=== PATIENT | male | born 1940 | race Caucasian/White ===

== ENCOUNTER → 2023-10-17 | Outpatient (CLI) | payer MEDICARE, BC, SELFPAY | END | disposition home or self-care (01) | PROVIDERS: PCP Family Medicine; Referring Provider Internal Medicine Critical Care Medicine; Visit Provider Internal Medicine Critical Care Medicine | DX: R06.02 Shortness of breath (principal) | CPT/HCPCS: 94060; 94726; 94729 ==

== ENCOUNTER → 2023-10-24 | Outpatient (CLI) | payer MEDICARE, BC, SELFPAY ==
[2023-10-24 11:15] VITALS: PULSE 83; PULSE 84; PULSE 90; PULSE 91; PULSE 92; PULSE 93; PULSE 99; O2SAT 95; O2SAT 96; O2SAT 97
--- NOTE | 2023-10-27 13:32 | WT_ITS ---
PSN 6 Minute Walk Test 6 Minute Walk Test 6 Minute Walk Test: 6 Minute Walk Test PSN:6-Minute Walk Test Start: 10/24/23 11:26 Freq: Status: Active Protocol: [id number] Document 10/24/23 11:15 [facility] (Rec: 10/24/23 11:[address] [facility] Desktop) 6 Minute Walk Test Date Performed 10/24/23 Time Performed 11:15 Height 6 ft 1 in Weight: 222 lb Weight in Pounds 222.[address]: Dr Esteban Assistive device used: None Pre-test Oxygen Delivery Method Room Air Pulse Ox 96 Pulse Rate (60-100) 83 Dyspnea Scott Scale (0-10) 0 Exertion Scott Scale (6-20) 6 1st minute Oxygen Delivery Method Room Air Pulse Ox 95 Pulse Rate (60-100) 93 2nd minute Oxygen Delivery Method Room Air Pulse Ox 97 Pulse Rate (60-100) 91 3rd minute Oxygen Delivery Method Room Air Pulse Ox 97 Pulse Rate (60-100) 92 4th minute Oxygen Delivery Method Room Air Pulse Ox 96 Pulse Rate (60-100) 90 5th minute Oxygen Delivery Method Room Air Pulse Ox 96 Pulse Rate (60-100) 92 6th minute Oxygen Delivery Method Room Air Pulse Ox 96 Pulse Rate (60-100) 99 Dyspnea Scott Scale (0-10) 0.5 Exertion Scott Scale (6-20) 11 Post-test Oxygen Delivery Method Room Air Pulse Ox 97 Pulse Rate (60-100) 84 Full Laps Walked 15 Partial Lap, Number of Tiles Walked 14 Total Distance Walked (ft) 899 Interpretation Interpretation: The patient ambulated 899 feet over the course of 6 minutes beginning on room air without assistive devices. Pretesting oxygen saturation was noted to be 96% on room air. With ambulation, the garrison oxygen saturation was 95%. There was no significant exertional oxygen desaturation. Recommendations Recommendations: There is no indication for the use of supplemental oxygen at this time.
== END | disposition home or self-care (01) ==
PROVIDERS: PCP Family Medicine; Referring Provider Internal Medicine Critical Care Medicine; Visit Provider Internal Medicine Critical Care Medicine
DX: R06.02 Shortness of breath (principal)
CPT/HCPCS: 94618

== ENCOUNTER → 2023-12-27 | Outpatient (CLI) | payer MEDICARE, BC, SELFPAY ==
--- NOTE | 2023-12-27 13:02 | CT_ITS ---
STUDY: LOW DOSE CT LUNG CANCER SCREENING REASON FOR EXAM: Male, 83 years old. HX SMOKING RADIATION DOSAGE (If Supplied By Facility): CTDIvol = ( 3.18 ) mGy, DLP = ( 113.58 ) mGycm TECHNIQUE: No contrast was administered. Low dose technique was utilized (average mAS-38 and kVp 120). 1.25 mm axial source images with a slice interval of 1.25-mm were reconstructed in lung windows. 2.5 mm axial source images with a slice interval of 2.5-mm were reconstructed in lung windows. 5.0 mm axial source images with a slice interval of 5.0-mm were reconstructed in soft tissue windows. COMPARISON: None. Emphysema: Mild emphysema. No noncalcified nodule or mass. Endobronchial lesion: None Aorta: Calcified plaque in the aortic arch but no aortic aneurysm. CORONARY ARTERIES: Coronary artery calcification is seen. Heart: No cardiomegaly. Pulmonary artery: Normal Mediastinal nodes: Normal Other chest and abdominal findings: None CT/Low Dose CT Lung Screening IMPRESSION: Lung-RADS category 1 - Continue annual screening with LDCT in 12 months. IMPORTANT NOTES FOR USE: ACR Lung-RADS Version 1.1 Assessment Categories Release Date: 2018 Category: Coded 0-4 bases on nodule(s) with highest degree of suspicion. Negative screen is defined as categories 1 and 2; a positive screen is defined as categories 3 and 4. Category 3 and 4A nodules that are unchanged on interval CT should be coded as category 2, and individuals returned to screening in 12 months. Category 4X: Category 3 or 4 nodules with additional imaging findings that increase the suspicion of lung cancer, such as spiculation, GGN that doubles in size in 1 year, enlarged lymph notes, etc. Category Modifiers: S (significant finding unrelated to lung cancer) Electronically Signed: Niels Sandoval MD at 17:01 EDT ,
== END | disposition home or self-care (01) ==
PROVIDERS: PCP Family Medicine; Referring Provider Family Medicine; Visit Provider Family Medicine
DX: Z87.891 Personal history of nicotine dependence (principal)
CPT/HCPCS: 71271

== ENCOUNTER → 2024-04-09 | Outpatient (CLI) | payer MEDICARE, BC, SELFPAY ==
[2024-04-09] MEDS: Lidocaine 2% (5ml sdv) 5 ML VIAL.MPF INFILT (12:30)
[2024-04-09] MEDS: Bupivacaine 0.25% 30 ML Vial 3.5 ML INFILT ×2 (12:40→12:55)
[2024-04-09] MEDS: MethylPREDNISolone Acetate 40 MG/ML Vial 60 MG INTRAARTIC ×2 (12:40→12:55)
[2024-04-09] MEDS: Lidocaine 1% (5 ml sdv) 5 ML Vial 3.5 ML INFILT ×2 (12:40→12:55)
--- NOTE | 2024-04-09 12:41 | PCM.OP.PRO ---
Procedure Report Date of Procedure: 04/09/24 Assessment & Plan Assessment/Plan (1) Anterior subluxation of right humerus: QUALIFIERS: Encounter type: sequela Qualified Code(s): S43.011S - Anterior subluxation of right humerus, sequela PLAN: PROCEDURE: Fluoroscopic Guided right shoulder injection ORDERING PROVIDER: Dr. Vincent Kothari INDICATION: Male, 83 years old. Anterior subluxation of right humerus. PROVIDER: JASON Alcantar FLUOROSCOPY TIME (if supplied): 0 minutes/ 33 seconds. 1.9 mGy CONSENT: The risks, benefits, and alternatives to the procedure were explained to the patient. The specific risks of bleeding, infection, and neurovascular injury were detailed and accepted. Witnessed informed consent was obtained. TECHNIQUE: The right glenohumeral space access site was prepped with chlorhexidine and draped in sterile fashion. 2% Lidocaine was administered subcutaneously for local anesthesia. A 22-gauge spinal needle was positioned under radiographic fluoroscopic localization. Approximately 2 cc of Isovue 300 instilled for localization purposes. Medication was then injected. MEDICATIONS: 60 mg of methylprednisolone and 3.5 ml of 1% lidocaine and 3.5 mL of 0.25% bupivacaine. The spinal needle was removed, and a dressing was applied. The patient tolerated the procedure well without any immediate complications. IMPRESSION: Successful fluoroscopic guided right shoulder injection. Procedures Radiology Radiology Xray Procedures: [id number] Inj Asp major Joint - Hip, Knee (right) Multi Select Codes Radiology Rad Xray Procedures: [id number] Fluoroscopic guidance for needle placement
--- NOTE | 2024-04-09 13:26 | PCM.OP.PRO ---
Procedure Report Date of Procedure: 04/09/24 Assessment & Plan Assessment/Plan (1) Strain of left rotator cuff capsule: QUALIFIERS: Encounter type: sequela Qualified Code(s): S46.012S - Strain of muscle(s) and tendon(s) of the rotator cuff of left shoulder, sequela PLAN: PROCEDURE: Fluoroscopic guided injection of left shoulder ORDERING PROVIDER: Dr. Vincent Kothari INDICATION: Male, 83 years old. Strain of left rotator cuff capsule. PROVIDER: JASON Alcantar FLUOROSCOPY TIME (if supplied): 0 minutes/ 33 seconds. 1.9 mGy CONSENT: The risks, benefits, and alternatives to the procedure were explained to the patient. The specific risks of bleeding, infection, and neurovascular injury were detailed and accepted. Witnessed informed consent was obtained. TECHNIQUE: The left glenohumeral space access site was prepped with chlorhexidine and draped in sterile fashion. 2% Lidocaine was administered subcutaneously for local anesthesia. A 22-gauge spinal needle was positioned under radiographic fluoroscopic localization. Approximately 2 cc of Isovue 300 instilled for localization purposes. Medication was then injected. MEDICATIONS: 60 mg of methylprednisolone and 3.5 ml of 1% lidocaine and 3.5 mL of 0.25% bupivacaine. The spinal needle was removed, and a dressing was applied. The patient tolerated the procedure well without any immediate complications. IMPRESSION: Successful fluoroscopic guided left shoulder injection. Procedures Radiology Radiology Xray Procedures: Inj Asp major Joint - Hip, Knee (left) Multi Select Codes Radiology Rad Xray Procedures: [id number] Fluoroscopic guidance for needle placement
== END | disposition home or self-care (01) ==
LOC: RAD 11:27
PROVIDERS: PCP Family Medicine; Referring Provider Orthopaedic Surgery; Visit Provider Orthopaedic Surgery
DX: S46.012S Strain of muscle(s) and tendon(s) of the rotator cuff of left shoulder, sequela (principal); S43.011 Anterior subluxation of right humerus
CPT/HCPCS: 20610; 77002

== ENCOUNTER → 2024-07-17 | Outpatient (CLI) | payer MEDICARE, BC, SELFPAY ==
--- NOTE | 2024-07-17 07:45 | RAD_ITS ---
PROCEDURE: Fluoroscopic guided right shoulder injection. DATE: July 17, 2024 INDICATION: Male, 83 years old. Chronic pain. PHYSICIAN: Chino Kee M.D. MEDICATIONS: 60 mg of Depo-Medrol, 3.5 cc of 1% lidocaine, 3.5 cc of 0.25% bupivacaine. 2% lidocaine Administered subcutaneously for local anesthesia. ACCESS SITE: Right shoulder. NEEDLE: 22-gauge spinal needle. FLUOROSCOPY TIME (if supplied): (1:41) minutes/seconds. 14.4 mGy. One image was submitted. FINDINGS: The risks, benefits, and alternatives to the procedure were explained to the patient. The specific risks of bleeding, infection, and neurovascular injury were detailed and accepted. Witnessed informed consent was obtained. A 22-gauge spinal needle was positioned under radiograph fluoroscopic localization. Approximately 2 cc of Isovue-300 instilled for localization purposes. Medication was then injected. The patient tolerated the procedure well without any immediate complications. RAD/Inj/Asp Arvin Jt Should/Hip/Knee IMPRESSION: 1. Successful fluoroscopic guided right shoulder injection Electronically Signed: Chino Kee MD at 9:50 EST ,
[2024-07-17] MEDS: Lidocaine 2% (5ml sdv) 5 ML VIAL.MPF INFILT ×2 (08:27→08:40)
[2024-07-17] MEDS: MethylPREDNISolone Acetate 40 MG/ML Vial 60 MG INTRAARTIC ×2 (08:29→08:41)
[2024-07-17] MEDS: Lidocaine 1% (5 ml sdv) 5 ML Vial 3.5 ML INFILT ×2 (08:29→08:41)
--- NOTE | 2024-07-17 08:32 | RAD_ITS ---
PROCEDURE: Fluoroscopic guided left shoulder injection. Injection DATE: July 17, 2024. INDICATION: Male, 83 years old. Chronic shoulder pain. PHYSICIAN: Chino Kee M.D. MEDICATIONS: 60 mg of Depo-Medrol as well as 3.5 cc 1% lidocaine and 3.5 cc of 0.25% of Bupivacaine. 2% lidocaine administered subcutaneously for local anesthesia. ACCESS SITE: Left shoulder. NEEDLE: 22-gauge spinal needle. FLUOROSCOPY TIME (if supplied): (0:43) minutes/seconds. 6.3 mGy. FINDINGS: The risks, benefits, and alternatives to the procedure were explained to the patient. The specific risks of bleeding, infection, and neurovascular injury were detailed and accepted. Witnessed informed consent was obtained. A 22-gauge spinal needle was positioned under radiographic fluoroscopic localization. Approximately 2 cc of Isovue 300 instilled for localization purposes. Medication was then injected. The patient tolerated the procedure well without any immediate complications. RAD/Inj/Asp Arvin Jt Should/Hip/Knee IMPRESSION: 1. Successful fluoroscopic guided left shoulder injection. Electronically Signed: Chino Kee MD at 9:42 EST ,
== END | disposition home or self-care (01) ==
LOC: RAD 07:40
PROVIDERS: PCP Family Medicine; Referring Provider Physician Assistant; Visit Provider Physician Assistant
DX: S46.012A Strain of muscle(s) and tendon(s) of the rotator cuff of left shoulder, initial encounter (principal); S46.011A Strain of muscle(s) and tendon(s) of the rotator cuff of right shoulder, initial encounter
CPT/HCPCS: 20610; 77002; Q9965

== ENCOUNTER → 2024-10-07 | Outpatient (CLI) | payer MEDICARE, BC, SELFPAY ==
[2024-10-07 13:50] LABS: PSA,Total- Diagnostic 0.89 ng/mL (0.00-4.00)
== END | disposition home or self-care (01) ==
LOC: LAB 12:03
PROVIDERS: PCP Family Medicine; Referring Provider Urology; Visit Provider Urology
DX: N40.1 Benign prostatic hyperplasia with lower urinary tract symptoms (principal)
CPT/HCPCS: 36415; 84153

== ENCOUNTER → 2025-02-05 | Outpatient (CLI) | payer MEDICARE, BC, SELFPAY | END | disposition home or self-care (01) | LOC: LABSPEC 16:50 | PROVIDERS: PCP Family Medicine | DX: J02.9 Acute pharyngitis, unspecified (principal) | CPT/HCPCS: 87070 ==